=== PATIENT | male | born 1945 | race Caucasian/White ===

== ENCOUNTER 2018-04-26 07:05 | Day surgery (SDC) | payer OTHER ==
[2018-04-26] MEDS ORDERED: Propofol 10 mg/ml Inj (20 ML) ONE (08:39)
[2018-04-26] MEDS ORDERED: Lidocaine Hydrochloride 5 ML INJ ONE (08:39)
--- NOTE | 2018-04-26 08:39 | CP.SDSHP ---
Same Day Surgery H & P - History Proposed Procedure: COLONSCOPY Pre-Op Diagnosis: SEE NOTES - Previous Medical/Surgical History Cardiac: Hypertension, ASHD/CAD, Other Endocrine/Metabolic: Other Pain: 2.Mild Pain - Allergies Allergies: Allergies No Known Allergies Allergy (Verified 04/25/18 11:16) - Physical Exam General Appearance: N Vital Signs: Vital Signs 04/26/18 07:31 Temperature 97.8 F Pulse Rate 65 Respiratory 19 Rate Blood Pressure 150/73 O2 Sat by Pulse 100 Oximetry Mental Status: Alert & Oriented x3 Neuro: WNL Heart: Other Lungs: WNL GI: WNL - {Optional Preform as Required} Breast: WNL Abdomen: Other Rectal: WNL Integument: WNL : WNL Ortho: Other ENT: WNL - Impression Pt. Evaluated Today:Candidate for Anesthesia & Procedure: Yes - Date & Time Time: 08:38 Short Stay Discharge - Short Stay Discharge Admitting Diagnosis/Reason for Visit: ENCOUNTER FOR SCREENING FOR MALIGNANT NEOPLASM OF Disposition: HOME/ ROUTINE
[2018-04-26] MEDS ORDERED: Lactated Ringer's 500 ML IV ONE ×2 (08:43)
[2018-04-26] MEDS ORDERED: Belladonna-Phenobarbital PO ONE (09:25)
[2018-04-26 15:09] VITALS: TEMP 97
[2018-04-26 15:19] VITALS: BP 165/72; PULSE 52; RESP 18; O2SAT 99
== END 2018-04-26 10:00 | disposition home or self-care (01) ==
LOC: C.ENDO 07:05
PROVIDERS: ATTEND Specialist
DX: Z12.11 Encounter for screening for malignant neoplasm of colon (principal); K57.90 Diverticulosis of intestine, part unspecified, without perforation or abscess without bleeding; K64.8 Other hemorrhoids
CPT/HCPCS: 45380; 88305; J2704; J7120